=== PATIENT | female | born 1955 | race Caucasian/White ===

== ENCOUNTER 2017-02-14 17:42 | Inpatient (IN) | payer OTHER ==
[~2017-02-14] VITALS: Ht 165.1 cm; Wt 56.9 kg
--- NOTE | ~2017-02-14 | EGD ---
EGD REPORT [facility] [address] [address] NAME: NEIDA TAYLOR : [birth year] STATUS : ADM Julia PAT#: [id number] AGE: 61 ADM/REG DATE : 02/14/17 MR#: [id number] REPORT SERV DATE: 02/15/17 DICTATED BY: MYKE TREJO DATE: 02/15/17 REPORT STATUS : Draft TRANSCRIBED BY: [facility] DATE: 02/15/17 Endoscopy Center Patient Name: Neida Taylor Date of : 1955 Attending MD: MYKE TREJO MD Procedure Date No Time: 02/15/2017 Procedure: Upper GI endoscopy Indications: Melena Medicines: Monitored Anesthesia Care Complications: No immediate complications. Estimated blood loss: Minimal. Procedure: After obtaining informed consent, the endoscope was passed under direct vision. Throughout the procedure, the patient's blood pressure, pulse, and oxygen saturations were monitored continuously. The GIF [id number] was introduced through the mouth, and advanced to the second part of duodenum. The upper GI endoscopy was accomplished without difficulty. The patient tolerated the procedure well. Findings: No gross lesions were noted in the entire esophagus. Four non-bleeding cratered gastric ulcers with no stigmata of bleeding were found in the prepyloric region of the stomach. The largest lesion was 10 mm in largest dimension. Biopsies were taken with a cold forceps for Helicobacter pylori testing. Estimated blood loss was minimal. No gross lesions were noted in the entire examined duodenum. The cardia and gastric fundus were normal on retroflexion. The exam was otherwise without abnormality. Impression: - Gastric ulcers with clean base. Biopsied. - The examination was otherwise normal. Recommendation: - [facility] patient to [facility] for [facility] care. - Await pathology results. - Clear liquid diet. - Use Protonix (pantoprazole) 40 mg PO BID for 12 weeks. - Repeat the upper endoscopy in 3 months to check healing. - Await pathology results. Procedure Code(s): --- Professional --- 63883, Esophagogastroduodenoscopy, flexible, transoral; with biopsy, single or multiple EGD REPORT [address] [address] NAME: NEIDA TAYLOR : [birth year] STATUS : ADM Julia PAT#: [id number] AGE: 61 ADM/REG DATE : 02/14/17 MR#: [id number] REPORT SERV DATE: 02/15/17 DICTATED BY: MYKE TREJO DATE: 02/15/17 REPORT STATUS : Draft TRANSCRIBED BY: [employer] DATE: 02/15/17 Diagnosis Code(s): --- Professional --- K25.9, Gastric ulcer, unspecified as acute or chronic, without hemorrhage or perforation K92.1, Melena CPT copyright 2013 [employer]. All rights reserved. The codes documented in this report are preliminary and upon medical insurance clerk review may be revised to meet current compliance requirements. Myke Trejo MD MYKE TREJO MD 02/15/2017 10:42 AM This report has been signed electronically. Number of Addenda: 0 Note Initiated On: 02/15/2017 10:18 AM Scope Withdrawal Time 0 hours 0 minutes 0 seconds
--- NOTE | ~2017-02-14 | CN ---
Consultation Report [facility] [address] [place]. [address] NAME: SOUMYA TAYLOR : [birth year] STATUS : ADM Julia PAT#: [id number] AGE: 61 ADM/REG DATE : 02/14/17 MR#: [id number] REPORT SERV DATE: 02/15/17 DICTATED BY: MEL LOPES DATE: 02/15/17 REPORT STATUS : Draft TRANSCRIBED BY: JESSA DATE: 02/15/17 GI CONSULTATION DATE OF CONSULTATION: 02/15/2017 REASON FOR CONSULTATION: Evaluation and management of melena and upper GI bleed. HISTORY OF PRESENT ILLNESS: Ms. Taylor is a pleasant 61-year-old female patient, known to Dr. Katalina Fish in the outpatient setting, who presents to [facility] with a history of 24 hours of melena and 48 hours of weakness. She states that she was in her typical state of health up until Wednesday afternoon when she became increasingly fatigued, unable to complete her activities of daily living. She states that she has had some anorexia, but no abdominal pain. She has had no hematochezia. She developed melena on Wednesday, she states two bowel movements that were black, but not tarry or sticky. She states they were at their usual consistency. She has had shortness of breath and orthostatic symptoms thus prompting her to come to [facility] for further evaluation. Hemoglobin on admission was 8.4, recheck was 6.8. She has been transfused a unit of blood. She has a history of melena and upper GI bleed in 2014 secondary to duodenal ulcer. On that exam, she had a duodenal ulcer, gastritis, and normal esophagus. She was on multiple NSAIDs at that point in time. Repeat endoscopy in 01/2015 showed Kimberly esophagitis and a duodenal scar. Her last colonoscopy was in 2010 with hyperplastic polyps and findings of collagenous colitis. She has been maintained on a Protonix drip. She has had no melena this morning. She has been transfused a unit of blood and is feeling somewhat better. I have discussed with her. We will plan on upper endoscopy today to evaluate for cause of melena. Risks, benefits, alternatives, complications detailed for her to include, but not limited to risk of bleeding, perforation, infection, reaction to medications as well as cardiac and pulmonary side effects. She is agreeable to proceed. PAST MEDICAL HISTORY: Positive for chronic pain syndrome; peptic ulcer disease; duodenal ulcer with GI bleeding in the past; non-alcoholic fatty liver disease; Boyer palsy; basal cell carcinoma; coronary artery disease, status post stents in the past, no anticoagulants. SOCIAL HISTORY: She lives independently with her . Denies tobacco, alcohol, or illicits. FAMILY HISTORY: Noncontributory from a GI standpoint. ALLERGIES: LISTED TO CODEINE AND ERYTHROMYCIN BASE. HOME MEDICATIONS: Norvasc, Lipitor, Wellbutrin, hydrochlorothiazide, Proventil, Lopressor, nitroglycerin, calcium plus D, and a PPI medication. REVIEW OF SYSTEMS: A 10-point review of systems has been obtained with pertinent positives being addressed in Consultation Report [address] [place]. [address] NAME: SOUMYA TAYLOR : [birth year] STATUS : ADM Julia PAT#: [id number] AGE: 61 ADM/REG DATE : 02/14/17 MR#: [id number] REPORT SERV DATE: 02/15/17 DICTATED BY: MEL LOPES DATE: 02/15/17 REPORT STATUS : Draft TRANSCRIBED BY: JESSA DATE: 02/15/17 the history of present illness. PHYSICAL EXAMINATION: VITAL SIGNS: Temperature 97.5, pulse is 78, respirations of 16, and blood pressure 99/55. NEUROLOGIC: Reveals an alert female resting in bed with no obvious focal deficits. GENERAL: Cooperative, in no apparent distress. Awake, alert, and oriented x3. HEAD, EARS, EYES, NOSE, AND THROAT: Anicteric. Pupils are equal, round, and reactive to light and accommodation. Normocephalic and atraumatic. NECK: Supple with no JVD. No palpable nodes. LUNGS: Clear anteriorly. Normal respiratory effort exhibited. Equal expansion. CARDIOVASCULAR SYSTEM: Regular rate and rhythm. S1 and S2. No murmurs, rubs, gallops. S3 or S4 appreciated. ABDOMEN: Soft, nontender, nondistended with active bowel sounds in all four quadrants. EXTREMITIES: No edema. Normal distal pulses. SKIN: Warm, dry, and intact. PERTINENT LABORATORY DATA: Sodium 134, potassium is 3.2, BUN is 63, and creatinine 1.12. White count 7.3, hemoglobin 6.8, hematocrit 20.3, platelet count 224. INR 1.1. In 11/2016, she had a hemoglobin of 11.4. ASSESSMENT/PLAN: 1. Melena for the last 24 hours. 2. History of duodenal ulcer with bleeding in 2014. 3. Acute blood loss anemia, status post a unit of packed red blood cells. 4. Weakness, shortness of breath, and orthostatics symptoms. 5. Acute kidney injury. 6. Anorexia. PLAN: 1. PPI drip. 2. The patient will undergo EGD today with Dr. Abdalla. 3. Follow H and H, transfuse if needed. 4. Other recommendations to follow endoscopy. SERENA/JESSA DAVIDA Guerrero / [id number] CC: Consultation Report [address] [place] [address] NAME: SOUMYA TAYLOR : [birth year] STATUS : ADM Julia PAT#: [id number] AGE: 61 ADM/REG DATE : 02/14/17 MR#: [id number] REPORT SERV DATE: 02/15/17 DICTATED BY: MEL LOPES DATE: 02/15/17 REPORT STATUS : Draft TRANSCRIBED BY: JESSA DATE: 02/15/17 Jacky Negrete M.D.
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
--- NOTE | ~2017-02-14 | DS ---
Discharge Summary [place] [address] [place]. [address] NAME: SOUMYA CARTER : 51 STATUS : DIS IN PAT#: [id number] AGE: 61 ADM/REG DATE : 02/14/17 MR#: [id number] REPORT SERV DATE: 02/18/17 DICTATED BY: RUSS PALACIOS DATE: 02/17/17 REPORT STATUS : Draft TRANSCRIBED BY: [employer] DATE: 02/17/17 ADMISSION DATE: 02/14/2017 DISCHARGE DATE: 02/17/2017 PRINCIPAL DIAGNOSIS: Gastrointestinal bleed due to peptic ulcer due to nonsteroidal anti- inflammatory drugs with symptomatic anemia due to acute blood loss and chronic iron- deficiency anemia, also acute kidney injury due to hypovolemia, anxiety, orthostatic hypotension. HISTORY OF PRESENT ILLNESS: Please see Dr. Martinez's dictation on 02/14/2017. HOSPITAL COURSE: Admitted with melanotic stool and found to be quite anemic. The patient was seen by GI, a gastric ulcer was found, this was felt to be secondary to NSAIDs. Biopsies were done. She was started on Protonix infusion, IV fluids, and eventually the diet could be advanced. She did require blood transfusion as well as an iron infusion, but felt much better by 02/17/2017, was able to tolerate regular diet. Activity as tolerated. Could be discharged with followup with Dr. Andrea Gutierrez in one to two weeks and Dr. Fish in three months. Medications at the time of discharge included Protonix, Lipitor, Wellbutrin, Lopressor 12.5 b.i.d. She was taken off amlodipine, lisinopril, and hydrochlorothiazide as her blood pressure had run low and never was higher than 130 during her hospitalization, but a blood pressure check is recommended to Dr. Gutierrez. ADRIAN/JESSA Russ Palacios M.D. / [id number] CC: Jacky Moyer M.D. Colleen Schmitt, M.D.
[~2017-02-14 17:42] MED LIST: ASAB PO; ATV1 PO; BIOTIN10 MG PO; CALCIUM 1200 MG PO; CALTRAT600 PO; FLONASE NAS; FOSAMAX35 MG PO; FOSAMAX70 MG PO; HAIR, SKIN, NAILS PO; HYDROCHLOROT12.5 MG PO; IBU400 PO; LEVAQUIN750 MG PO; LIPITOR20 PO; LIPITOR40 PO; LISINOPRIL; LISINOPRIL40 MG PO; LOP25 PO; LORTAB 5 PO; METOPROLOL 25MG PO; MICROZIDE PO; NITROSTAT0.3 MG SL; NITROSTAT0.4 MG SL; NORCO1 TA1; NORV5 PO; NTG150 SL; PLAVIX PO; PRIN20 PO; PROTONIX PO; SUCR PO; ULTRAM50 PO; VITAMIN D1000 UNI1 PO; VITAMIN D2000 UNIT PO; WELLBUTRIN; WELLSR100 PO; WELLSR150 PO; WELLXL300 PO; X5 PO; ZESTRIL30 MG PO; ZESTRIL40 MG PO; ZOCOR40 PO; ZOFRAN4 PO; [UNRECOGNIZED DRUG - OTHER] PO
[2017-02-14 18:50] LABS: BASOPHILS 0.4 %; BASOPHILS ABSOLUTE 0.03 10/3/uL (0.0-0.16); EOSINOPHILS 1.5 %; EOSINOPHILS ABSOLUTE 0.11 10/3/uL (0.0-0.53); IMMATURE GRANULOCYTES 0.1 %; IMMATURE GRANULOCYTES ABSOLUTE 0.01 10/3/uL (0.0-0.11); LYMPHOCYTES 18.3 %; LYMPHOCYTES ABSOLUTE 1.33 10/3/uL (0.67-4.30); MEAN CORPUS HGB CONC 33.5 g/dL (32.0-36.0); MEAN CORPUSCULAR HEMOGLOB 31.3 pg (26.0-34.0); MEAN CORPUSCULAR VOLUME 93.7 fL (80-100); MEAN PLATELET VOLUME 8.6 fL (9.2-13.0); MONOCYTES 8.7 %; MONOCYTES ABSOLUTE 0.63 10/3/uL (0.21-1.20); NEUTROPHILS ABSOLUTE 5.17 10/3/uL (2.02-8.40); PLATELET COUNT 224 10/3/uL (150-400); RBC DISTRIBUTION WIDTH 13.6 % (12.0-16.0); WHITE BLOOD CELLS 7.3 10/3/uL (4.5-10.5)
[2017-02-14 18:53] LABS: HEMATOCRIT 25.1 % (36.0-48.0); HEMOGLOBIN 8.4 g/dL (12.0-16.0); MANUAL DIFF NO %; RED CELL COUNT 2.68 10/6/uL (4.0-5.6)
[2017-02-14 18:59] LABS: INTERNATIONAL NORMAL RATI 1.1 UNITS (-); PARTIAL THROMBO TIME 25.1 SEC (22.5-37.2); PROTIME (NOT ORD) 14.2 SEC (12.0-14.5)
[2017-02-14 19:06] LABS: A/G RATIO 1.2 (0.7-1.9); ALBUMIN 3.7 G/DL (3.5-5.0); ALKALINE PHOSPHATASE 89 U/L (45-117); BUN (BLOOD UREA NITROGEN) 53 MG/DL (6-23); CALCIUM, SERUM 8.9 MG/DL (8.5-10.4); CHLORIDE, SERUM 96 MMOL/L (96-112); CO2 (CARBON DIOXIDE) 28 MMOL/L (24-34); CREATININE 1.12 MG/DL (0.55-1.02); GFR AFRICAN AMERICAN 61 ML/MIN (>=60); GFR NON AFRICAN AMERICAN 52 ML/MIN (>=60); GLUCOSE, SERUM 106 MG/DL (60-99); POTASSIUM, SERUM 3.2 MMOL/L (3.5-5.3); SGOT(AST) 20 U/L (5-40); SGPT(ALT) 23 U/L (5-65); SODIUM, SERUM 134 MMOL/L (135-148); TOTAL BILIRUBIN 0.2 MG/DL (0-1.2); TOTAL PROTEIN 6.7 G/DL (6.0-8.5)
[2017-02-14 19:18] LABS: PROCALCITONIN 0.08 ng/mL (<0.5)
[2017-02-14 19:34] LABS: ASCORBIC ACID (UR NOT ORDER) NEG (NEG); BILIRUBIN, URINE NEGATIVE (NEG); ER URINALYSIS TAT 0 Hrs 09 Mins; KETONE, URINE NEGATIVE (NEG); LEUKOCYTE ESTERASE(NOT OR TRACE (NEG); WBC (NOT ORDERED) (RFLEX) < 1 (0-5)
[2017-02-14] MEDS ORDERED: CALCIUM+D PO (19:36)
[2017-02-14] MEDS ORDERED: LIPITOR40 PO (19:39)
[2017-02-14] MEDS ORDERED: LISINOPRIL40 MG PO (19:39)
[2017-02-14] MEDS ORDERED: NORV5 PO (19:39)
[2017-02-14] MEDS ORDERED: LOP25 PO (19:39)
[2017-02-14] MEDS ORDERED: HYDROCHLOROT12.5 MG PO (19:40)
[2017-02-14] MEDS ORDERED: NITROSTAT0.4 MG SL (19:40)
[2017-02-14] MEDS ORDERED: WELLSR150 PO (19:40)
[2017-02-14] MEDS ORDERED: GI MED PO (19:40)
[2017-02-14 19:46] LABS: LACTATE 1.1 MMOL/L (0.3-2.4)
[2017-02-14 19:47] LABS: NITRITE (URINE) NEG (NEG)
[2017-02-14 22:29] LABS: PHOSPHORUS, SERUM 3.1 MG/DL (2.5-4.5)
[2017-02-15 01:59] LABS: HEMATOCRIT 20.3 % (36.0-48.0); HEMOGLOBIN 6.8 g/dL (12.0-16.0)
[2017-02-15 09:10] LABS: BASOPHILS 0.5 %; BASOPHILS ABSOLUTE 0.02 10/3/uL (0.0-0.16); EOSINOPHILS 2.5 %; EOSINOPHILS ABSOLUTE 0.11 10/3/uL (0.0-0.53); HEMOGLOBIN 8.5 g/dL (12.0-16.0); IMMATURE GRANULOCYTES 0.2 %; IMMATURE GRANULOCYTES ABSOLUTE 0.01 10/3/uL (0.0-0.11); MEAN CORPUS HGB CONC 33.2 g/dL (32.0-36.0); MEAN CORPUSCULAR HEMOGLOB 30.8 pg (26.0-34.0); MEAN CORPUSCULAR VOLUME 92.8 fL (80-100); MEAN PLATELET VOLUME 8.7 fL (9.2-13.0); MONOCYTES 10.4 %; MONOCYTES ABSOLUTE 0.46 10/3/uL (0.21-1.20); NEUTROPHILS 59.4 %; NEUTROPHILS ABSOLUTE 2.64 10/3/uL (2.02-8.40); PLATELET COUNT 169 10/3/uL (150-400); RBC DISTRIBUTION WIDTH 14.1 % (12.0-16.0); RED CELL COUNT 2.76 10/6/uL (4.0-5.6); WHITE BLOOD CELLS 4.4 10/3/uL (4.5-10.5)
[2017-02-15 09:11] LABS: HEMATOCRIT 25.6 % (36.0-48.0); MANUAL DIFF NO %
[2017-02-15 09:19] LABS: INTERNATIONAL NORMAL RATI 1.2 UNITS (-); PARTIAL THROMBO TIME 25.2 SEC (22.5-37.2); PROTIME (NOT ORD) 14.7 SEC (12.0-14.5)
[2017-02-15 12:55] LABS: HEMOGLOBIN 8.5 g/dL (12.0-16.0)
[2017-02-15 20:08] LABS: HEMATOCRIT 24.8 % (36.0-48.0); HEMOGLOBIN 8.3 g/dL (12.0-16.0)
[2017-02-16 05:21] LABS: CALCIUM, SERUM 8.2 MG/DL (8.5-10.4); CHLORIDE, SERUM 114 MMOL/L (96-112); CO2 (CARBON DIOXIDE) 24 MMOL/L (24-34); GFR AFRICAN AMERICAN 107 ML/MIN (>=60); GFR NON AFRICAN AMERICAN 92 ML/MIN (>=60); GLUCOSE, SERUM 86 MG/DL (60-99); POTASSIUM, SERUM 4.2 MMOL/L (3.5-5.3)
[2017-02-16 05:23] LABS: BUN (BLOOD UREA NITROGEN) 12 MG/DL (6-23); SODIUM, SERUM 144 MMOL/L (135-148)
[2017-02-16 07:15] LABS: HEMATOCRIT 26.5 % (36.0-48.0); HEMOGLOBIN 8.7 g/dL (12.0-16.0)
[2017-02-16 12:45] LABS: % IRON SAT 21 % (20-50); FERRITIN 79 NG/ML (8-252); IRON BINDING CAPACITY 263 MCG/DL (225-410); IRON, SERUM 55 MCG/DL (35-150)
[2017-02-17 07:08] LABS: BASOPHILS 0.8 %; BASOPHILS ABSOLUTE 0.03 10/3/uL (0.0-0.16); EOSINOPHILS 4.2 %; EOSINOPHILS ABSOLUTE 0.16 10/3/uL (0.0-0.53); HEMATOCRIT 26.1 % (36.0-48.0); HEMOGLOBIN 8.6 g/dL (12.0-16.0); IMMATURE GRANULOCYTES 0.3 %; IMMATURE GRANULOCYTES ABSOLUTE 0.01 10/3/uL (0.0-0.11); LYMPHOCYTES 28.5 %; LYMPHOCYTES ABSOLUTE 1.08 10/3/uL (0.67-4.30); MANUAL DIFF NO %; MEAN CORPUSCULAR VOLUME 94.2 fL (80-100); MEAN PLATELET VOLUME 8.7 fL (9.2-13.0); MONOCYTES 9.8 %; MONOCYTES ABSOLUTE 0.37 10/3/uL (0.21-1.20); NEUTROPHILS 56.4 %; NEUTROPHILS ABSOLUTE 2.14 10/3/uL (2.02-8.40); PLATELET COUNT 197 10/3/uL (150-400); RBC DISTRIBUTION WIDTH 14.5 % (12.0-16.0); RED CELL COUNT 2.77 10/6/uL (4.0-5.6); WHITE BLOOD CELLS 3.8 10/3/uL (4.5-10.5)
[2017-02-17 07:21] LABS: BUN (BLOOD UREA NITROGEN) 9 MG/DL (6-23); CALCIUM, SERUM 8.7 MG/DL (8.5-10.4); CHLORIDE, SERUM 109 MMOL/L (96-112); CO2 (CARBON DIOXIDE) 25 MMOL/L (24-34); CREATININE 0.84 MG/DL (0.55-1.02); GFR AFRICAN AMERICAN 86 ML/MIN (>=60); GFR NON AFRICAN AMERICAN 74 ML/MIN (>=60); GLUCOSE, SERUM 93 MG/DL (60-99); POTASSIUM, SERUM 4.1 MMOL/L (3.5-5.3); SODIUM, SERUM 141 MMOL/L (135-148)
[2017-02-17] MEDS ORDERED: PROTONIX PO (10:16)
== END 2017-02-17 12:17 | disposition home or self-care (01) | DRG 378 ==
LOC: ER 17:42 → 7NO 20:20
PROVIDERS: Hospitalist; Internal Medicine; Internal Medicine Gastroenterology; Internal Medicine Pulmonary Disease; Nurse Practitioner Family; Specialist
PROC: 30233N1 Transfusion of Nonautologous Red Blood Cells into Peripheral Vein, Percutaneous Approach (ICD-10-PCS; 2017-02-15)
PROC: 0DB68ZX Excision of Stomach, Via Natural or Artificial Opening Endoscopic, Diagnostic (ICD-10-PCS; principal; 2017-02-15 10:24)
DX: K25.4 Chronic or unspecified gastric ulcer with hemorrhage (principal); N17.9 Acute kidney failure, unspecified; I95.0 Idiopathic hypotension; D62 Acute posthemorrhagic anemia; R55 Syncope and collapse; E87.6 Hypokalemia; I25.10 Atherosclerotic heart disease of native coronary artery without angina pectoris; Z95.1 Presence of aortocoronary bypass graft; I10 Essential (primary) hypertension; R63.0 Anorexia; T39.395A Adverse effect of other nonsteroidal anti-inflammatory drugs [NSAID], initial encounter; D50.9 Iron deficiency anemia, unspecified; F41.9 Anxiety disorder, unspecified; G89.4 Chronic pain syndrome; Z95.5 Presence of coronary angioplasty implant and graft
CPT/HCPCS: 36415; 71010; 80048; 80053; 81001; 82728; 83540; 83550; 83605; 83735; 84100; 84132; 84145; 85014; 85018; 85025; 85610; 85730; 86850; 86900; 86901; 86920; 87040; 88305; 93005; 99285; A9270-GY; C9113; J2405; J2916; P9016